=== PATIENT | female | born 1965 | race Hispanic/Latino ===

== ENCOUNTER 2017-12-08 19:17 | Inpatient (IN) | payer MEDICAID, OTHER ==
[2017-12-08 19:47] LABS: BASO # 0.1 K/uL (0.0-0.2); BASO % 1.1 % (0.0-2.0); EOS # 0.2 K/uL (0.0-0.7); EOS % 4.2 % (0.0-4.0); HEMOGLOBIN 11.5 g/dL (11.0-16.0); LYMPH # 1.7 K/uL (1.0-4.3); LYMPH % 30.6 % (20.0-40.0); MEAN CELL VOLUME 89.9 fL (81.0-99.0); MEAN CORPUSCULAR HEMOGLOBIN 30.4 pg (27.0-31.0); MEAN CORPUSCULAR HGB CONC 33.9 g/dL (33.0-37.0); MEAN PLATELET VOLUME 8.1 fL (7.2-11.7); MONO # 0.4 K/uL (0.0-0.8); MONO % 6.7 % (0.0-10.0); NEUT # 3.1 K/uL (1.8-7.0); NEUT % 57.4 % (50.0-75.0); RBC 3.79 Mil/uL (3.80-5.20); RED CELL DISTRIBUTION WIDTH 13.6 % (11.5-14.5); WHITE BLOOD COUNT 5.4 K/uL (4.8-10.8)
[2017-12-08 19:54] LABS: HCG,QUALITATIVE URINE NEGATIVE (NEGATIVE)
[2017-12-08 20:00] LABS: SQUAMOUS EPITHIAL 5 /hpf (0-5); URINE BACTERIA FEW (<OCC); URINE BILIRUBIN NEGATIVE (NEGATIVE); URINE BLOOD NEGATIVE (NEGATIVE); URINE CLARITY Hazy (Clear); URINE COLOR Yellow (YELLOW); URINE GLUCOSE (UA) NORMAL (Normal); URINE LEUKOCYTE ESTERASE 3+ Leu/uL (Negative); URINE PROTEIN NEGATIVE (NEGATIVE)
[2017-12-08 20:02] LABS: ALB/GLOB RATIO 1.2 (1.0-2.1); ALBUMIN 4.4 g/dL (3.5-5.0); ALT/SGPT 22 U/L (9-52); AST/SGOT 29 U/L (14-36); BLOOD UREA NITROGEN 14 mg/dL (7-17); CALCIUM 8.8 mg/dl (8.6-10.4); GFR NON-AFRICAN AMERICAN 43
[2017-12-08 20:07] LABS: BARBITURATES, UR NEGATIVE (NEGATIVE); BENZODIAZEPINES, UR NEGATIVE (NEGATIVE); PHENCYCLIDINE, UR NEGATIVE (NEGATIVE)
[2017-12-08 20:16] LABS: OPIATES, UR POSITIVE (NEGATIVE)
--- NOTE | 2017-12-08 20:41 | C.PDOC ---
History Of Present Illness 52 y/o female presents to the ED requesting detox from heroin, cocaine and benzos. The patient states she is on a methanol program in which she takes 120 mg/ day. She states she last "sniffed" heroin three days ago. The patient offers no other medical complaints at this time. Time Seen by Provider: 12/08/17 19:37 Chief Complaint (Nursing): Substance Abuse History Per: Patient History/Exam Limitations: no limitations Onset/Duration Of Symptoms: Hrs Modifying Factor(s): Cocaine, Other (Heroin and benzos) Recent travel outside of the [place]: No Past Medical History Reviewed: Historical Data, Nursing Documentation, Vital Signs Vital Signs: Last Vital Signs Temp 97.3 F L 12/08/17 23:02 Pulse 67 12/08/17 23:02 Resp 18 12/08/17 23:02 BP 122/76 12/08/17 23:02 Pulse Ox 100 12/08/17 23:18 - Medical History PMH: No Chronic Diseases Surgical History: No Surg Hx Family History: States: Unknown Family Hx - Social History Hx Alcohol Use: No Hx Substance Use: Yes Review Of Systems Except As Marked, All Systems Reviewed And Found Negative. Constitutional: Negative for: Fever, Chills Psych: Negative for: Suicidal ideation, Other (HI) Physical Exam - Physical Exam Appears: Well, Non-toxic, No Acute Distress Skin: Normal Color, Warm, Dry Head: Atraumatic, Normacephalic Eye(s): bilateral: Normal Inspection, EOMI Ear(s): Bilateral: Normal Oral Mucosa: Moist Neck: Normal ROM Chest: Symmetrical Cardiovascular: Rhythm Regular, No Murmur Respiratory: Normal Breath Sounds, No Rales, No Rhonchi, No Wheezing Gastrointestinal/Abdominal: Soft, No Tenderness, No Distention Extremity: Normal ROM Extremity: Bilateral: Normal Color And Temperature, Normal ROM Neurological/Psych: Normal Speech, Normal Sensation, Other (Alert) ED Course And Treatment - Laboratory Results Result Diagrams: 12/08/17 19:44 12/08/17 19:44 O2 Sat by Pulse Oximetry: 100 (RA) Pulse Ox Interpretation: Normal Medical Decision Making Medical Decision Making: Impression: 52 y/o female requesting detox from heroin, cocaine and benzos Plan: -UA -HCG -CMP -CBC -Magnesium -Alcohol Serum - Drug Screen 2055--- medically cleared. Disposition - Disposition Disposition: HOSPITALIZED Disposition Time: 21:10 Condition: STABLE - Clinical Impression Clinical Impression: Drug abuse, Drug dependence - PA / BOW MAKER / Resident Statement MD/DO has reviewed & agrees with the documentation as recorded. - Scribe Statement The provider has reviewed the documentation as recorded by the Scribe (Karyn Crouch) Provider Attestation: All medical record entries made by the Scribe were at my direction and personally dictated by me. I have reviewed the chart and agree that the record accurately reflects my personal performance of the history, physical exam, medical decision making, and the department course for this patient. I have also personally directed, reviewed, and agree with the discharge instructions and disposition.
--- NOTE | 2017-12-08 22:13 | PCM.BM ---
<Ricky Wang - Last Filed: 12/08/17 22:12> Treatment Plan Problems - Problems identified on initial assessmt potential for opiate withdrawal Date Initiated: 12/08/17 Time Initiated: 22:12 Status: Active Treatment assets and liabiliti Patient Liabilities: substance abuse - Milieu Protocol Maintain good personal hygiene: daily Encourage regular showers, daily Remind patient to perform daily oral care, daily Assist patient to perform ADL's Maintain personal safety: every shift Educate patient to report safety concerns to staff, every shift Monitor environment for contraband/sharps Medication safety: Monitor for expected outcome, potential side effects: every shift, Assess barriers to learning: every shift, Assess readiness for medication education: every shift <Alexa Thomas - Last Filed: 12/11/17 00:24> - Diagnosis (1) Sedative, hypnotic or anxiolytic use disorder, severe, dependence Status: Acute Interventions: 12/11/17 00:24 * Assess 7x/week regarding severity of withdrawal * Educate regarding risks, benefits, side effects and alternatives of medications * Use Motivational Interviewing for abstinence * Use CBT for relapse prevention * Medication management for withdrawal symptoms * Encourage medication assisted treatment *
[2017-12-08 23:03] VITALS: RESP 18
[2017-12-09] MEDS ORDERED: Methadone 40 mg Tab PO ONE (10:30)
--- NOTE | 2017-12-09 14:35 | PCM.PSYCH ---
Initial Psychiatric Evaluation - Initial Psychiatric Evaluation Type of Admission: Voluntary Legal Status: Capacity Chief Complaint (in patient's own words): I want to stop using heroin. History of Present Illness and Precipitating Events: Patient is a 52 years old, single, unemployed, female with no previous psychiatric history was admitted due to withdrawing from opiates and cocaine. Patient denied any psychiatric history. Reported she came for withdrawing from heroin, cocaine and anxiolytics. Heroin: Started using heroin 31 years ago, was using 1 bundle daily until 3 years ago, snorting. Was in methadone maintenance treatment program for last 3 years. Currently she was taking methadone 120 mg daily. Her last dose was yesterday, confirmed from the program. Patient reported that for last 3-4 weeks she relapsed on heroin. She was using heroin and methadone together. Patient reported she was taking 8 bags of heroin daily. Last use was yesterday. Cocaine: Started using cocaine 31 years ago. Patient reported that she is using cocaine was $500 daily, smoking and last use was yesterday. Also reported using Klonopin 2 mg and Xanax 2 mg. According to patient she was taking 3-6 pills of Klonopin and 3-6 pills of Xanax daily for last 3 weeks. Her last dose reported yesterday. Urine drug screen was negative. Also smokes one pack of cigarettes daily and is requesting for nicotine patch. Denied any medical issues. She was born in [place], has eighth grade of education. Is not working. She lives with a roommate. She is supported by her roommate and son. She was never and has one 34 years old son. Her height is 5 feet 1 inch and weight is 83 pounds. Patient wants to go to [facility], long-term, for follow-up care after discharge from the hospital. Current Medications: Active Medications Generic Name Dose Route Start Last Admin Trade Name Freq PRN Reason Stop Dose Admin Ciprofloxacin 500 mg 12/09/17 10:15 12/09/17 11:00 Cipro PO 12/13/17 22:00 500 mg BID JONN Administration Protocol Clonidine HCl 0.1 mg 12/09/17 01:56 Catapres PO Q6H PRN elevated BP Dicyclomine HCl 10 mg 12/08/17 23:55 Bentyl PO Q6 PRN Muscle spasm Hydroxyzine HCl 25 mg 08/31/18 23:55 Atarax PO Q6 PRN Anxiety Loperamide HCl 2 mg 12/08/17 23:55 Imodium PO Q8 PRN Diarrhea Lorazepam 1 mg 12/09/17 00:37 Ativan PO Q6H PRN Anxiety Nicotine 1 patch 12/09/17 10:15 12/09/17 11:00 Nicoderm Cq TD 1 patch DAILY JONN Administration Ondansetron HCl 4 mg 12/08/17 23:55 Zofran Tab PO Q8H PRN Nausea/Vomiting Past Psychiatric History - Past Psychiatric History Previous Treatment History: Intensive Outpatient History of Abuse: None reported History of ETOH/Drug Use: See HPI History of Family Illness: Reported history of heroine use and her brother who is clean now. Pertinent Medical Hx (Current Medical&Sleep Prob, Allergies): Allergies Allergy/AdvReac Type Severity Reaction Status Date / Time No Known Allergies Allergy Verified 12/08/17 19:35 No Known Home Med 12/08/17 Review of Systems - Psychiatric Psychiatric: As Per HPI Mental Status Examination - Personal Presentation Personal Presentation: Looks older than stated age - Affect Affect: Other (Appropriate) - Motor Activity Motor Activity: Calm - Reliability in Providing Information Reliability in Providing Information: Fair - Speech Speech: Organized - Mood Mood: Neutral - Formal Thought Process Formal Thought Process: No Impairment - Hallucinations/Delusions Hallucinations: Other (None reported) Delusions: Other - Obsessions/Compulsions Obsessions: None Compulsions: None - Cognitive Functions Orientation: Person, Place, Situation, Time Sensorium: Alert Attention/Concentration: Attentive Abstract Thinking: [place] Estimate of Intelligence: Average Judgement: Intact, as evidence by: Insight regarding need for hospitalization Memory: Recent intact, as evidence by: Ability to recall events of the day, Remote intact, as evidenced by: Ability to recall historical events - Risk Risk: Withdrawal, Diminished functioning - Strength & Assets Inventory Strength & Assets Inventory: Cooperative - Limitations Limitations: Other DSM 5 DX - DSM 5 DSM 5 Diagnosis: Opiate use disorder severe on agonist therapy. Cocaine use disorder severe. - Recommended/Plan of Treatment Treatment Recommendations and Plan of Treatment: Patient education. Supportive therapy. CBT for relapse prevention. CO for abstinence. We will continue methadone 120 mg daily as maintenance dose. The dose was confirmed from her methadone program. We will start Ativan 1 mg by mouth every 6 when necessary for anxiolytics withdrawal symptoms. Patient wants to go to [facility], long-term, for follow-up care after discharge from the hospital. - Smoking Cessation Smoking Cessation Initiated: Yes
[2017-12-09] MEDS: Multiple Vitamins Tab PO SCH (14:57)
[2017-12-10] MEDS: Methadone 40 mg Tab PO SCH (09:52)
[2017-12-10] MEDS: Multiple Vitamins Tab PO SCH (09:54)
--- NOTE | 2017-12-11 00:24 | PCM.PYCHPN ---
Psychiatric Progress Note - Psychiatric Progress Note Patient seen today, length of contact: 19 min Medication Change: Yes Medical Record Reviewed: Yes Mental Status Examination - Cognitive Function Orientation: Person, Place, Situation, Time - Mood Mood: Neutral - Affect Affect: Other (Appropriate) - Formal Thought Process Formal Thought Process: No Impairment - Homicidal Ideation Homicidal Ideation: No
--- NOTE | 2017-12-11 09:06 | PCM.PYCHDC ---
Mental Status Examination - Mental Status Examination Orientation: Person Discharge Summary - Discharge Note Consultations:: List each consultation separately and include: 1. Reason for request. 2. Findings. 3. Follow-up Summary of Hospital Course include:: 1. Description of specific treatment plan utilized for patients during their course of treatmen. 2. Summarize the time- course for resolution of acute symptoms and/or regressed behaviors. 3. Describe issues identified and worked on during hospitalization. 4. Describe medication utilized. 5. Describe medical problems identified and treated. 6. Reassessment of suicide risk Summary of Hospital Course: She will return to [facility]. - Diagnosis (1) Sedative, hypnotic or anxiolytic use disorder, severe, dependence Current Visit: Yes Status: Acute - Final Diagnosis (DSM 5) Condition upon Discharge: STABLE Disposition: HOME/ ROUTINE Prescriptions/Medication Reconciliation: Ciprofloxacin [Cipro] 500 mg PO BID #10 tab Gabapentin [Neurontin] 300 mg PO TID #90 cap Multivitamins [Hexavitamin] 1 tab PO DAILY #30 tab
[2017-12-11] MEDS: Methadone 40 mg Tab PO SCH (09:30)
[2017-12-11] MEDS: Multiple Vitamins Tab PO SCH (09:30)
[2017-12-11 10:11] VITALS: BP 119/66; PULSE 76; TEMP 99; O2SAT 98
== END 2017-12-11 10:15 | disposition home or self-care (01) | DRG 745 ==
LOC: C.ER 19:17 → C.7D 21:48
PROC: HZ52ZZZ Individual Psychotherapy for Substance Abuse Treatment, Cognitive-Behavioral (ICD-10-PCS; principal; 2017-12-08)
PROC: HZ2ZZZZ Detoxification Services for Substance Abuse Treatment (ICD-10-PCS; 2017-12-08)
PROC: HZ56ZZZ Individual Psychotherapy for Substance Abuse Treatment, Psychoeducation (ICD-10-PCS; 2017-12-08)
DX: F13.20 Sedative, hypnotic or anxiolytic dependence, uncomplicated (principal); F11.20 Opioid dependence, uncomplicated; F14.20 Cocaine dependence, uncomplicated; F17.210 Nicotine dependence, cigarettes, uncomplicated